=== PATIENT | male | born 1970 | race Caucasian/White ===

== ENCOUNTER 2019-08-11 16:06 | Observation (INO) | payer BC ==
[2019-08-11] MEDS ORDERED: THIAMINE 100 MG/ML 2 ML VIAL IM STA (18:26)
[2019-08-11] MEDS ORDERED: LORazepam 2 MG/ML INJ IV PRN ×2 (18:26)
--- NOTE | 2019-08-11 18:34 | ED ---
Alcohol HPI - General Source: patient Mode of arrival: ambulatory Limitations: no limitations <Leonel Prieto - Last Filed: 08/11/19 19:50> <Candice Ruiz - Last Filed: 08/15/19 03:46> - General Chief Complaint: Alcohol Stated Complaint: ETOH Time Seen by Provider: 08/11/19 17:21 - History of Present Illness Initial Comments: Patient is a 49-year-old male with history of alcoholism was presenting to emergency Department with chief complaint of alcohol withdrawal. Patient reports he was sober for 9 months and attended a meetings weekly. Patient reports on Saturday he began drinking for particular reason. Patient reports after he drinks he develops abdominal pain in order to alleviate the pain he continue drinking. Patient reports he has been drinking since Saturday. Patient reports he had a fifth of liquor today. Patient reports he has developed generalized abdominal pain that comes and goes. Patient also reports nausea but no vomiting. Patient denies tremors at this time. (Leonel Prieto) - Related Data Previous Rx's Medication Instructions Recorded Carvedilol [Coreg] 3.125 mg PO DAILY 30 Days #30 08/13/19 tablet Folic Acid 1 mg PO DAILY #30 tablet 08/13/19 Multivitamins, Thera [Multivitamin] 1 tab PO DAILY #30 tablet 08/13/19 Omeprazole [PriLOSEC] 20 mg PO AC-BID 30 Days #60 cap 08/13/19 Thiamine [Vitamin B-1] 100 mg PO BID-W/MEALS 30 Days #60 08/13/19 tab Allergies Allergy/AdvReac Type Severity Reaction Status Date / Time No Known Allergies Allergy Verified 08/11/19 17:29 Review of Systems ROS Other: All systems not noted in ROS Statement are negative. <Leonel Prieto - Last Filed: 08/11/19 19:50> ROS Other: All systems not noted in ROS Statement are negative. <Candice Ruiz - Last Filed: 08/15/19 03:46> ROS Statement: Those systems with pertinent positive or pertinent negative responses have been documented in the HPI. Past Medical History Past Medical History: No Reported History History of Any Multi-Drug Resistant Organisms: None Reported Past Surgical History: No Surgical Hx Reported Past Psychological History: No Psychological Hx Reported Smoking Status: Current every day smoker Past Alcohol Use History: Daily Past Drug Use History: None Reported <Leonel Prieto - Last Filed: 08/11/19 19:50> General Exam Limitations: no limitations General appearance: alert, in no apparent distress Head exam: Present: atraumatic, normocephalic, normal inspection Eye exam: Present: normal appearance, PERRL, EOMI Pupils: Present: normal accommodation ENT exam: Present: normal exam, mucous membranes dry, normal external ear exam Neck exam: Present: normal inspection, full ROM Respiratory exam: Present: normal lung sounds bilaterally Cardiovascular Exam: Present: regular rate, normal rhythm, normal heart sounds GI/Abdominal exam: Present: soft, tenderness (Suprapubic) Extremities exam: Present: normal inspection, full ROM, normal capillary refill, other (+2 ulnar radial pulses bilaterally.) Back exam: Present: normal inspection, full ROM Neurological exam: Present: alert, oriented X3 Psychiatric exam: Present: normal affect, normal mood Skin exam: Present: warm, intact, normal color <Leonel Prieto - Last Filed: 08/11/19 19:50> Course Vital Signs 08/11/19 08/11/19 08/11/19 16:36 18:53 20:09 Temperature 97.9 F 97.9 F Pulse Rate 113 H 102 H 99 Respiratory 16 18 18 Rate Blood Pressure 193/123 174/127 167/114 O2 Sat by Pulse 95 98 94 L Oximetry 08/11/19 08/11/19 21:23 21:32 Temperature Pulse Rate 107 H 105 H Respiratory 18 18 Rate Blood Pressure 158/112 148/92 O2 Sat by Pulse 94 L 94 L Oximetry Medical Decision Making - Lab Data Result diagrams: 08/11/19 18:50 08/11/19 18:50 <Leonel Prieto - Last Filed: 08/11/19 19:50> - Lab Data Result diagrams: 08/11/19 18:50 08/11/19 18:50 <Candice Ruiz - Last Filed: 08/15/19 03:46> - Medical Decision Making Patient is a 49-year-old male presenting to the emergency department with a chief complaint of alcohol withdrawal. Patient has been sober for the past 9 months but began to drink Saturday and has not stopped since. Patient wants to be admitted for alcohol withdrawal. Patient doesn't have any tremors. Patient is only complaining of nausea and mild generalized abdominal pain that comes in waves. Patient has a BAT of 0.271. CIWA score assessed. patient placed on alcohol protocol for DT. Patient given antiemetics, fluids and thimine. Patient is not in DT at this time. Patient reports he drank a few hours prior to ED arrival. Patient wants to be evaluated by the psychiatry staff. Patient will be admitted for further medical management due to alcohol intoxication over 0.250. Case discussed with Dr. Ruiz. Admitting physcian is Dr. Ochoa (Leonel Prieto) I was available for consultation in the emergency department. The history and physical exam were done by the midlevel provider. I was consulted for this patients care. I reviewed the case with the midlevel provider and based on their presentation of the patient, I agree with the assessment, medical decision mamadou arciniega and plan of care as documented. Chart was dictated using [employer] dictation software. Attempts were made to correct any dictation errors however some typographical errors may persist. (Candice Ruiz) - Lab Data Lab Results 08/11/19 08/11/19 Range/Units 18:50 18:50 WBC 7.5 (3.8-10.6) k/uL RBC 5.56 (4.30-5.90) m/uL Hgb 17.0 (13.0-17.5) gm/dL Hct 49.9 (39.0-53.0) % MCV 89.7 (80.0-100.0) fL MCH 30.5 (25.0-35.0) pg MCHC 34.0 (31.0-37.0) g/dL RDW 15.9 H (11.5-15.5) % Plt Count 267 (150-450) k/uL Neutrophils % 50 % Lymphocytes % 39 % Monocytes % 6 % Eosinophils % 2 % Basophils % 1 % Neutrophils # 3.7 (1.3-7.7) k/uL Lymphocytes # 2.9 (1.0-4.8) k/uL Monocytes # 0.4 (0-1.0) k/uL Eosinophils # 0.2 (0-0.7) k/uL Basophils # 0.1 (0-0.2) k/uL Sodium 142 (137-145) mmol/L Potassium 4.3 (3.5-5.1) mmol/L Chloride 100 (98-107) mmol/L Carbon Dioxide 31 H (22-30) mmol/L Anion Gap 11 mmol/L BUN 9 (9-20) mg/dL Creatinine 0.67 (0.66-1.25) mg/dL Est GFR (CKD-EPI)AfAm >90 (>60 ml/min/1.73 sqM) Est GFR (CKD-EPI)NonAf >90 (>60 ml/min/1.73 sqM) Glucose 97 (74-99) mg/dL Calcium 9.4 (8.4-10.2) mg/dL Total Bilirubin 0.5 (0.2-1.3) mg/dL AST 45 (17-59) U/L ALT 39 (21-72) U/L Alkaline Phosphatase 99 (38-126) U/L Total Protein 7.7 (6.3-8.2) g/dL Albumin 4.5 (3.5-5.0) g/dL Amylase 56 (30-110) U/L Lipase 75 (23-300) U/L Disposition Is patient prescribed a controlled substance at d/c from ED?: No Time of Disposition: 19:55 <Leonel Prieto - Last Filed: 08/11/19 19:50> <Candice Ruiz - Last Filed: 08/15/19 03:46> Clinical Impression: Alcoholic intoxication Disposition: ADMITTED IP TO THIS HOSP Condition: Stable
[2019-08-11 19:10] LABS: Basophils # (A) 0.1 k/uL (0-0.2); Basophils % (A) 1 %; Eosinophils # (A) 0.2 k/uL (0-0.7); Eosinophils % (A) 2 %; HCT 49.9 % (39.0-53.0); Lymphocytes # (A) 2.9 k/uL (1.0-4.8); Lymphocytes % (A) 39 %; MCH 30.5 pg (25.0-35.0); MCV 89.7 fL (80.0-100.0); Mean Platelet Volume 6.6; Monocytes # (A) 0.4 k/uL (0-1.0); Monocytes % (A) 6 %; Neutrophils # (A) 3.7 k/uL (1.3-7.7); Neutrophils % (A) 50 %; Platelet Count 267 k/uL (150-450); RBC 5.56 m/uL (4.30-5.90); RDW 15.9 % (11.5-15.5); WBC 7.5 k/uL (3.8-10.6)
[2019-08-11 19:18] LABS: ALT 39 U/L (21-72); AST 45 U/L (17-59); African American GFR (CKD) >90 (>60 ml/min/1.73 sqM); Albumin 4.5 g/dL (3.5-5.0); Alkaline Phosphatase 99 U/L (38-126); Amylase 56 U/L (30-110); Anion Gap 11 mmol/L; Blood Urea Nitrogen 9 mg/dL (9-20); Calcium 9.4 mg/dL (8.4-10.2); Carbon Dioxide 31 mmol/L (22-30); Chloride 100 mmol/L (98-107); Glucose 97 mg/dL (74-99); Non-African American GFR(CKD) >90 (>60 ml/min/1.73 sqM); Potassium 4.3 mmol/L (3.5-5.1); Sodium 142 mmol/L (137-145); Total Bilirubin 0.5 mg/dL (0.2-1.3); Total Protein 7.7 g/dL (6.3-8.2)
[2019-08-11] MEDS ORDERED: NALOXONE 0.4 MG/ML 1 ML VIAL IV PRN (19:47)
[2019-08-11] MEDS ORDERED: HYDROmorphone 1 MG/ML 1 ML SYRINGE IVP PRN (19:47)
[2019-08-11] MEDS ORDERED: ONDANSETRON ODT 4 MG TAB PO STA (20:23)
[2019-08-11] MEDS ORDERED: cloNIDine HCL 0.1 MG TAB PO STA (20:23)
[2019-08-11] MEDS ORDERED: NICOTINE 21MG/24HR PATCH TRANSDERM STA (21:24)
[2019-08-11] MEDS: LORazepam 2 MG/ML INJ IV PRN (21:31)
[2019-08-12] MEDS: ONDANSETRON 4 MG/2 ML VIAL IVP PRN ×2 (01:57→08:05)
[2019-08-12] MEDS: ALPRAZolam 0.25 MG TAB PO PRN ×2 (08:05→22:00)
[2019-08-12] MEDS: THIAMINE 100 MG TAB PO SCH ×2 (08:05→18:10)
[2019-08-12] MEDS: IPRATROPIUM-ALBUTEROL 3 ML NEB INHALATION PRN ×3 (10:08→20:13)
[2019-08-12] MEDS: LORazepam 2 MG/ML INJ IV PRN (11:17)
[2019-08-12] MEDS: cloNIDine HCL 0.1 MG TAB PO SCH ×3 (11:19→22:00)
--- NOTE | 2019-08-12 14:10 | P.HPIM ---
History of Present Illness 49-year-old male with history of alcoholism was presenting to emergency Department with chief complaint of alcohol withdrawal. Patient reports he was sober for 9 months and attended a meetings weekly. Patient reports on Saturday he began drinking for particular reason. Patient reports after he drinks he develops abdominal pain in order to alleviate the pain he continue drinking. Patient reports he has been drinking since Saturday. Patient reports he had a fifth of liquor today. Patient reports he has developed generalized abdominal pain that comes and goes. Patient also reports nausea but no vomiting. Patient denies tremors at this time. Patient is willing to quit alcohol again. Patient started having withdrawals today. Patient would pressure is elevated and the patient is bit tachycardic because of alcohol withdrawal, will use clonidine. Review of Systems REVIEW OF SYSTEMS: CONSTITUTIONAL: No fever, no malaise, no fatigue. HEENT: No recent visual problems or hearing problems. Denied any sore throat. CARDIOVASCULAR: No chest pain, orthopnea, PND, no palpitations, no syncope. PULMONARY: No shortness of breath, no cough, no hemoptysis. GASTROINTESTINAL: As mentioned above NEUROLOGICAL: No headaches, no weakness, no numbness. HEMATOLOGICAL: Denies any bleeding or petechiae. GENITOURINARY: Denies any burning micturition, frequency, or urgency. MUSCULOSKELETAL/RHEUMATOLOGICAL: Denies any joint pain, swelling, or any muscle pain. ENDOCRINE: Denies any polyuria or polydipsia. The rest of the 14-point review of systems is negative. Past Medical History Past Medical History: Hypertension History of Any Multi-Drug Resistant Organisms: None Reported Past Surgical History: No Surgical Hx Reported Past Psychological History: No Psychological Hx Reported Smoking Status: Current every day smoker Past Alcohol Use History: Daily Past Drug Use History: None Reported - Past Family History Father Additional Family Medical History / Comment(s): alcoholic Mother Family Medical History: Hypertension Medications and Allergies Home Medications Medication Instructions Recorded Confirmed Type No Known Home Medications 10/24/16 08/11/19 History Allergies Allergy/AdvReac Type Severity Reaction Status Date / Time No Known Allergies Allergy Verified 08/11/19 17:29 Physical Exam Vitals: Vital Signs Temp Pulse Pulse Resp BP BP Pulse Ox 08/12/19 13:42 84 08/12/19 10:18 80 08/12/19 10:08 76 08/12/19 07:00 98.3 F 111 H 16 182/101 92 L 08/12/19 01:38 98.0 F 111 H 17 150/103 89 L 08/11/19 22:42 98.3 F 97 150/100 91 L 08/11/19 21:32 105 H 18 148/92 94 L 08/11/19 21:23 107 H 18 158/112 94 L 08/11/19 20:09 97.9 F 99 18 167/114 94 L 08/11/19 18:53 102 H 18 174/127 98 08/11/19 16:36 97.9 F 113 H 16 193/123 95 Intake and Output 08/11/19 08/12/19 08/12/19 22:59 06:59 14:59 Intake Total 450 Balance 450 Intake: Oral 450 Other: Weight 74.389 kg PHYSICAL EXAMINATION: GENERAL: The patient is alert and oriented x3, not in any acute distress. Well developed, well nourished. HEENT: Pupils are round and equally reacting to light. EOMI. No scleral icterus. No conjunctival pallor. Normocephalic, atraumatic. No pharyngeal erythema. No thyromegaly. CARDIOVASCULAR: S1 and S2 present. No murmurs, rubs, or gallops. PULMONARY: Chest is clear to auscultation, no wheezing or crackles. ABDOMEN: Soft, nontender, nondistended, normoactive bowel sounds. No palpable organomegaly. MUSCULOSKELETAL: No joint swelling or deformity. EXTREMITIES: No cyanosis, clubbing, or pedal edema. NEUROLOGICAL: Gross neurological examination did not reveal any focal deficits. SKIN: No rashes. Results CBC & Chem 7: 08/11/19 18:50 08/11/19 18:50 Labs: Abnormal Lab Results - Last 24 Hours (Table) 08/11/19 08/11/19 Range/Units 18:50 18:50 RDW 15.9 H (11.5-15.5) % Carbon Dioxide 31 H (22-30) mmol/L Assessment and Plan Plan: -Alcohol withdrawal patient will be on Ativan CIWA protocol thiamine multivitamin supplementation IV fluids -Hypertension and tachycardia: Secondary to alcohol withdrawal clonidine 0.1 mg 3 times a day as needed. Alcoholic gastritis: Protonix -DVT prophylaxis early ambulation
[2019-08-12] MEDS ORDERED: MAG HYDROX/AL HYDROX/SIMETH 30 ML CUP PO PRN (17:31)
[2019-08-12] MEDS: NICOTINE 21MG/24HR PATCH TRANSDERM SCH (18:10)
[2019-08-12] MEDS ORDERED: FAMOTIDINE 20 MG TAB PO SCH (21:00)
[2019-08-13 01:50] VITALS: TEMP 98.1
[2019-08-13] MEDS ORDERED: PANTOPRAZOLE 40 MG TABLET PO SCH (07:30)
[2019-08-13 08:20] VITALS: RESP 16
[2019-08-13] MEDS: NICOTINE 21MG/24HR PATCH TRANSDERM SCH (08:26)
[2019-08-13] MEDS: THIAMINE 100 MG TAB PO SCH (08:27)
[2019-08-13] MEDS: cloNIDine HCL 0.1 MG TAB PO SCH (08:27)
[2019-08-13] MEDS: IPRATROPIUM-ALBUTEROL 3 ML NEB INHALATION PRN (09:15)
[2019-08-13 10:18] VITALS: PULSE 89
[2019-08-13 10:41] VITALS: BP 158/98
--- NOTE | 2019-08-13 16:16 | P.DS ---
Providers Date of admission: 08/11/19 20:42 Expected date of discharge: 08/13/19 Attending physician: Gomez Ochoa Primary care physician: Stated None Hospital Course: Final diagnosis -Alcohol withdrawal -Hypertension and tachycardia: Secondary to alcohol withdrawal -Alcoholic gastritis -DVT prophylaxis Discharge disposition Patient is being discharged in a stable condition with guarded prognosis to home and will follow-up with primary care provider upon discharge. Patient will be started on a low-dose of Coreg 3.125 mg daily upon discharge. Total time taken is 35 minutes. History of present illness This is a 49-year-old male who was recently admitted for alcohol withdrawal and was being closely monitored. Patient recently quit drinking and was sober for 9 months and going to meetings every week recently just restarted drinking this past Saturday. During hospitalization patient was hypertensive and tachycardic and was given clonidine. Upon discharge patient will be started on Coreg and will follow-up with primary care provider in 1-2 days. Discussed with the patient at length about refraining from any alcohol intake and patient agrees with this plan. Patient denies any chest pain, shortness of breath, or palp itations at this time. Patient is afebrile. Patient denies any nausea or vomiting and has been tolerating diet. Patient's gait is steady. at the bedside. Currently patient's condition is stable and able for discharge today. Guarded prognosis. On exam vital signs are stable. Temp is 98.1F, pulse is 88, respirations are 16, blood pressure is 158/98, oxygen saturation is 94% on room air. Cardio S1 and S2 are normal. Respiratory system shows clear to auscultation. Abdomen is soft and nontender. Nervous system shows no focal deficits and gait is steady. Please refer to medication reconciliation sheet for a list of medications. Patient Condition at Discharge: Stable Plan - Discharge Summary New Discharge Prescriptions: New Folic Acid 1 mg PO DAILY #30 tablet Multivitamins, Thera [Multivitamin] 1 tab PO DAILY #30 tablet Omeprazole [PriLOSEC] 20 mg PO AC-BID 30 Days #60 cap Thiamine [Vitamin B-1] 100 mg PO BID-W/MEALS 30 Days #60 tab Carvedilol [Coreg] 3.125 mg PO DAILY 30 Days #30 tablet Discharge Medication List Carvedilol [Coreg] 3.125 mg PO DAILY 30 Days #30 tablet 08/13/19 [Rx] Folic Acid 1 mg PO DAILY #30 tablet 08/13/19 [Rx] Multivitamins, Thera [Multivitamin] 1 tab PO DAILY #30 tablet 08/13/19 [Rx] Omeprazole [PriLOSEC] 20 mg PO AC-BID 30 Days #60 cap 08/13/19 [Rx] Thiamine [Vitamin B-1] 100 mg PO BID-W/MEALS 30 Days #60 tab 08/13/19 [Rx] Follow up Appointment(s)/Referral(s): Wilfredo Ludwig MD [REFERRING] - 08/21/19 1:50 pm Patient Instructions/Handouts: Alcohol Intoxication (ED) Activity/Diet/Wound Care/Special Instructions: Activity Limited until follow-up Follow-up with primary care provider this week Continue current diet Avoid any alcohol intake Avoid tobacco use Discharge Disposition: HOME SELF-CARE
== END 2019-08-13 11:25 | disposition home or self-care (01) ==
LOC: EC 16:06 → 4SSUR 20:42
PROVIDERS: ADMIT Hospitalist; ATTEND Hospitalist
DX: F10.239 Alcohol dependence with withdrawal, unspecified (principal); F10.229 Alcohol dependence with intoxication, unspecified; K29.20 Alcoholic gastritis without bleeding; I10 Essential (primary) hypertension; R00.0 Tachycardia, unspecified; R10.84 Generalized abdominal pain; R11.0 Nausea; Y90.8 Blood alcohol level of 240 mg/100 ml or more; F17.200 Nicotine dependence, unspecified, uncomplicated; Z79.899 Other long term (current) drug therapy; Z82.49 Family history of ischemic heart disease and other diseases of the circulatory system; Z81.1 Family history of alcohol abuse and dependence
CPT/HCPCS: 96376; 96375; 82075; 96372; 96374; 99284; 36415; 94640 ×3; 80053; 82150; 83690; 85025; G0378 ×3; S4990 ×3; J2060 ×2; J3411; J2405

== ENCOUNTER 2020-06-02 09:35 | Emergency (ER) | payer BC ==
[2020-06-02 09:40] VITALS: TEMP 98.1
[2020-06-02] MEDS ORDERED: SODIUM CHLORIDE 0.9% 1,000 ML IV ONE (09:52)
[2020-06-02] MEDS ORDERED: IPRATROPIUM-ALBUTEROL 3 ML NEB INHALATION STA (09:53)
[2020-06-02] MEDS ORDERED: LORazepam 2 MG/ML INJ IV STA (09:53)
[2020-06-02] MEDS ORDERED: hydrALAZINE HCL 20 MG/ML 1 ML VIAL IVP STA (09:53)
[2020-06-02] MEDS ORDERED: SODIUM CHLORIDE 0.9% 1,000 ML with MVI, ADULT NO.4 WITH VIT K 10 ML, THIAMINE 100 MG, F... IV ONE ×4 (10:00)
--- NOTE | 2020-06-02 10:01 | ED ---
General Adult HPI - General Chief complaint: Alcohol Stated complaint: alcohol withdrawal Time Seen by Provider: 06/02/20 09:40 Source: patient, RN notes reviewed, old records reviewed Mode of arrival: ambulatory Limitations: no limitations - History of Present Illness Initial comments: This is a 50-year-old male who presents emergency department stating that he is a heavy drinker and is been drinking heavily for 3 weeks. Patient states he has quit before but he's been on the successful and staying on the wagon. Patient comes in today stating he wants to go to rehab shaking has thinks she is withdrawing. Patient states he last drank probably around 2:00 in the morning. Patient states she also smokes cigarettes. Patient denies any chest pain difficult breathing shortness of breath per patient denies any fever chills or cough per patient denies headache patient denies numbness weakness. Patient denies abdominal pain patient denies nausea vomiting diarrhea. - Related Data Previous Rx's Medication Instructions Recorded Carvedilol [Coreg] 3.125 mg PO DAILY 30 Days #30 08/13/19 tablet Folic Acid 1 mg PO DAILY #30 tablet 08/13/19 Multivitamins, Thera [Multivitamin] 1 tab PO DAILY #30 tablet 08/13/19 Omeprazole [PriLOSEC] 20 mg PO AC-BID 30 Days #60 cap 08/13/19 Thiamine [Vitamin B-1] 100 mg PO BID-W/MEALS 30 Days #60 08/13/19 tab Allergies Allergy/AdvReac Type Severity Reaction Status Date / Time No Known Allergies Allergy Verified 06/02/20 09:39 Review of Systems ROS Statement: Those systems with pertinent positive or pertinent negative responses have been documented in the HPI. ROS Other: All systems not noted in ROS Statement are negative. Past Medical History Past Medical History: Hypertension History of Any Multi-Drug Resistant Organisms: None Reported Past Surgical History: No Surgical Hx Reported Past Psychological History: No Psychological Hx Reported Smoking Status: Current every day smoker Past Alcohol Use History: Abuse, Daily, Heavy Past Drug Use History: None Reported - Past Family History Father Additional Family Medical History / Comment(s): alcoholic Mother Family Medical History: Hypertension General Exam - General Exam Comments Initial Comments: GENERAL: Patient is well-developed and well-nourished. Patient is nontoxic and well- hydrated and is in mild distress. Patient seems mildly tremulous ENT: Neck is soft and supple. No significant lymphadenopathy is noted. Oropharynx is clear. Moist mucous membranes. Neck has full range of motion without eliciting any pain. EYES: The sclera were anicteric and conjunctiva were pink and moist. Extraocular movements were intact and pupils were equal round and reactive to light. Eyelids were unremarkable. PULMONARY: Patient has expiratory wheezing CARDIOVASCULAR: There is a regular rate and rhythm without any murmurs gallops or rubs. ABDOMEN: Soft and nontender with normal bowel sounds. No palpable organomegaly was noted. There is no palpable pulsatile mass. SKIN: Skin is clear with no lesions or rashes and otherwise unremarkable. NEUROLOGIC: Patient is alert and oriented x3. Cranial nerves II through XII are grossly intact. Motor and sensory are also intact. Normal speech, volume and content. Symmetrical smile. MUSCULOSKELETAL: Normal extremities with adequate strength and full range of motion. LYMPHATICS: No significant lymphadenopathy is noted PSYCHIATRIC: Normal psychiatric evaluation. Limitations: no limitations Course Vital Signs 06/02/20 06/02/20 06/02/20 09:37 09:58 10:13 Temperature 98.1 F Pulse Rate 121 H 118 H Respiratory 18 16 Rate Blood Pressure 201/114 185/119 143/100 O2 Sat by Pulse 98 94 L Oximetry 06/02/20 06/02/20 06/02/20 10:16 10:35 10:47 Temperature Pulse Rate 111 H 121 H 116 H Respiratory 16 Rate Blood Pressure 140/98 140/90 O2 Sat by Pulse 97 Oximetry 06/02/20 06/02/20 10:48 11:50 Temperature Pulse Rate 115 H 114 H Respiratory 16 Rate Blood Pressure 128/88 O2 Sat by Pulse 92 L Oximetry Medical Decision Making - Lab Data Result diagrams: 06/02/20 10:06 06/02/20 10:06 Lab Results 06/02/20 06/02/20 06/02/20 Range/Units 10:06 10:06 10:06 WBC 5.1 (3.8-10.6) k/uL RBC 4.43 (4.30-5.90) m/uL Hgb 13.9 (13.0-17.5) gm/dL Hct 41.4 (39.0-53.0) % MCV 93.4 (80.0-100.0) fL MCH 31.4 (25.0-35.0) pg MCHC 33.6 (31.0-37.0) g/dL RDW 14.4 (11.5-15.5) % Plt Count 201 (150-450) k/uL Neutrophils % 65 % Lymphocytes % 21 % Monocytes % 11 % Eosinophils % 1 % Basophils % 1 % Neutrophils # 3.3 (1.3-7.7) k/uL Lymphocytes # 1.1 (1.0-4.8) k/uL Monocytes # 0.6 (0-1.0) k/uL Eosinophils # 0.1 (0-0.7) k/uL Basophils # 0.0 (0-0.2) k/uL Sodium 135 L (137-145) mmol/L Potassium 3.7 (3.5-5.1) mmol/L Chloride 95 L (98-107) mmol/L Carbon Dioxide 18 L (22-30) mmol/L Anion Gap 22 mmol/L BUN 11 (9-20) mg/dL Creatinine 0.67 (0.66-1.25) mg/dL Est GFR (CKD-EPI)AfAm >90 (>60 ml/min/1.73 sqM) Est GFR (CKD-EPI)NonAf >90 (>60 ml/min/1.73 sqM) Glucose 88 (74-99) mg/dL Calcium 8.6 (8.4-10.2) mg/dL Magnesium 1.4 L (1.6-2.3) mg/dL Total Bilirubin 0.6 (0.2-1.3) mg/dL AST 83 H (17-59) U/L ALT 54 H (4-49) U/L Alkaline Phosphatase 105 (38-126) U/L Total Protein 6.7 (6.3-8.2) g/dL Albumin 4.3 (3.5-5.0) g/dL Serum Alcohol 254 H* mg/dL Disposition Clinical Impression: Alcoholic intoxication Disposition: HOME SELF-CARE Condition: Good Instructions (If sedation given, give patient instructions): Alcohol Intoxication (ED) Additional Instructions: Patient should follow-up with rehabilitation Center Is patient prescribed a controlled substance at d/c from ED?: No Referrals: None,Stated [Primary Care Provider] - 1-2 days Time of Disposition: 11:53
[2020-06-02 10:34] LABS: Basophils % (A) 1 %; Eosinophils # (A) 0.1 k/uL (0-0.7); Eosinophils % (A) 1 %; HCT 41.4 % (39.0-53.0); HGB 13.9 gm/dL (13.0-17.5); Lymphocytes # (A) 1.1 k/uL (1.0-4.8); Lymphocytes % (A) 21 %; MCH 31.4 pg (25.0-35.0); MCHC 33.6 g/dL (31.0-37.0); MCV 93.4 fL (80.0-100.0); Mean Platelet Volume 7.1; Monocytes # (A) 0.6 k/uL (0-1.0); Monocytes % (A) 11 %; Neutrophils # (A) 3.3 k/uL (1.3-7.7); Neutrophils % (A) 65 %; Platelet Count 201 k/uL (150-450); RBC 4.43 m/uL (4.30-5.90); RDW 14.4 % (11.5-15.5); WBC 5.1 k/uL (3.8-10.6)
[2020-06-02 10:42] LABS: ALT 54 U/L (4-49); AST 83 U/L (17-59); African American GFR (CKD) >90 (>60 ml/min/1.73 sqM); Albumin 4.3 g/dL (3.5-5.0); Alkaline Phosphatase 105 U/L (38-126); Anion Gap 22 mmol/L; Blood Urea Nitrogen 11 mg/dL (9-20); Calcium 8.6 mg/dL (8.4-10.2); Carbon Dioxide 18 mmol/L (22-30); Chloride 95 mmol/L (98-107); Glucose 88 mg/dL (74-99); Magnesium 1.4 mg/dL (1.6-2.3); Non-African American GFR(CKD) >90 (>60 ml/min/1.73 sqM); Potassium 3.7 mmol/L (3.5-5.1); Sodium 135 mmol/L (137-145); Total Bilirubin 0.6 mg/dL (0.2-1.3); Total Protein 6.7 g/dL (6.3-8.2)
[2020-06-02] MEDS ORDERED: MAGNESIUM SULFATE-D5W PMX 1 GM in DEXTROSE/WATER 1 100ML.BAG IVPB ONE (10:44)
[2020-06-02] MEDS ORDERED: ONDANSETRON 4 MG/2 ML VIAL IVP STA (11:43)
[2020-06-02 12:31] VITALS: BP 128/77; PULSE 110; RESP 18
== END 2020-06-02 12:31 | disposition home or self-care (01) ==
LOC: EC 09:35
DX: F10.129 Alcohol abuse with intoxication, unspecified (principal); F17.210 Nicotine dependence, cigarettes, uncomplicated; Y90.8 Blood alcohol level of 240 mg/100 ml or more
CPT/HCPCS: 99285; 96365; 96366; 96368; 96375 ×3; 96361; 36415; 94640; 80053; 83735; 85025; 80320; J2060; J0360; J3411; J2405; J3475

== ENCOUNTER 2022-05-29 10:09 | Emergency (ER) | payer BC ==
[2022-05-29 10:52] VITALS: TEMP 98.2
[2022-05-29] MEDS ORDERED: SODIUM CHLORIDE 0.9% 1,000 ML IV STA (11:47)
[2022-05-29 12:21] LABS: Basophils # (A) 0.1 k/uL (0-0.2); Basophils % (A) 1 %; Eosinophils # (A) 0.2 k/uL (0-0.7); Eosinophils % (A) 2 %; HCT 41.3 % (39.0-53.0); HGB 14.3 gm/dL (13.0-17.5); Lymphocytes # (A) 1.4 k/uL (1.0-4.8); Lymphocytes % (A) 13 %; MCHC 34.5 g/dL (31.0-37.0); Mean Platelet Volume 8.1; Monocytes # (A) 0.5 k/uL (0-1.0); Monocytes % (A) 5 %; Neutrophils # (A) 8.3 k/uL (1.3-7.7); Neutrophils % (A) 78 %; Platelet Count 201 k/uL (150-450); RBC 4.59 m/uL (4.30-5.90); RDW 13.1 % (11.5-15.5); WBC 10.7 k/uL (3.8-10.6)
[2022-05-29 12:29] LABS: Prothrombin Time 10.6 sec (9.0-12.0)
[2022-05-29 12:31] LABS: ALT 78 U/L (4-49); AST 88 U/L (17-59); African American GFR (CKD) >90 (>60 ml/min/1.73 sqM); Albumin 4.3 g/dL (3.5-5.0); Alcohol <10 mg/dL; Alkaline Phosphatase 83 U/L (38-126); Anion Gap 7 mmol/L; Blood Urea Nitrogen 20 mg/dL (9-20); Calcium 9.2 mg/dL (8.4-10.2); Carbon Dioxide 30 mmol/L (22-30); Chloride 97 mmol/L (98-107); Glucose 108 mg/dL (74-99); Non-African American GFR(CKD) >90 (>60 ml/min/1.73 sqM); Potassium 3.4 mmol/L (3.5-5.1); Sodium 134 mmol/L (137-145); Total Bilirubin 0.8 mg/dL (0.2-1.3)
--- NOTE | 2022-05-29 12:34 | XR ---
EXAMINATION TYPE: XR chest 2V DATE OF EXAM: 05/29/2022 COMPARISON: NONE HISTORY: Shortness of breath TECHNIQUE: Frontal and lateral views of the chest are obtained. FINDINGS: Scattered senescent parenchymal changes noted. No evidence for infiltrate. No evidence for atelectasis. Heart size is stable. Mediastinal structures are stable and grossly unremarkable. No evidence for hilar prominence. Degenerative changes dorsal spine. IMPRESSION: 1. No evidence for acute pulmonary disease.
[2022-05-29 12:44] LABS: Appearance,Urine Clear (Clear); Bilirubin,Urine Negative (Negative); Blood,Urine Negative (Negative); Color,Urine Yellow; Glucose,Urine (UA) Negative (Negative); Ketones,Urine Negative (Negative); Leukocyte Esterase,Urine Negative (Negative); Nitrite,Urine Negative (Negative); Protein,Urine Trace (Negative); Specific Gravity,Urine 1.025 (1.001-1.035)
[2022-05-29 12:47] VITALS: RESP 16
--- NOTE | 2022-05-29 12:53 | ED ---
Dizziness HPI - General Chief Complaint: Dizziness Stated Complaint: High blood pressure Time Seen by Provider: 05/29/22 11:36 Source: patient Mode of arrival: ambulatory Limitations: no limitations - History of Present Illness Initial Comments: Patient is a 52-year-old male with history of hypertension and alcohol abuse presenting with chief complaint of dizziness. Patient states that he was at home resting when he felt sudden onset dizziness, he also states that his legs felt very restless at that time. Patient states "I just felt weird". Patient states he was concerned about his blood sugar and ate some chocolate. He admits to having 3 cups of coffee this morning. He used to at home machine to check his blood pressure which was approximately 180/100. Patient states that last week he was drinking alcohol excessively, on Saturday he went to [facility], he was given Zofran and discharged home, and he has not drank since. He denies any chest pain, shortness of breath, fever, chills, nausea, vomiting, abdominal pain, tremors, headache, vision or hearing changes, syncope, head injury, palpitations, recent illness. - Related Data Previous Rx's Medication Instructions Recorded Folic Acid 1 mg PO DAILY #30 tablet 08/13/19 Multivitamins, Thera [Multivitamin] 1 tab PO DAILY #30 tablet 08/13/19 Omeprazole [PriLOSEC] 20 mg PO AC-BID 30 Days #60 cap 08/13/19 Thiamine [Vitamin B-1] 100 mg PO BID-W/MEALS 30 Days #60 08/13/19 tab carvediloL [Coreg] 3.125 mg PO DAILY 30 Days #30 08/13/19 tablet Allergies Allergy/AdvReac Type Severity Reaction Status Date / Time No Known Allergies Allergy Verified 05/29/22 10:52 Review of Systems ROS Statement: Those systems with pertinent positive or pertinent negative responses have been documented in the HPI. ROS Other: All systems not noted in ROS Statement are negative. Past Medical History Past Medical History: Hypertension History of Any Multi-Drug Resistant Organisms: None Reported Past Surgical History: No Surgical Hx Reported Past Psychological History: No Psychological Hx Reported Smoking Status: Current every day smoker Past Alcohol Use History: Abuse, Daily, Heavy Past Drug Use History: None Reported - Past Family History Father Additional Family Medical History / Comment(s): alcoholic Mother Family Medical History: Hypertension General Exam Limitations: no limitations General appearance: alert, in no apparent distress Head exam: Present: atraumatic, normocephalic, normal inspection Eye exam: Present: normal appearance, PERRL, EOMI. Absent: scleral icterus, periorbital swelling Neck exam: Present: normal inspection Respiratory exam: Present: normal lung sounds bilaterally. Absent: respiratory distress, wheezes, rales, rhonchi, stridor Cardiovascular Exam: Present: regular rate, normal rhythm, normal heart sounds. Absent: systolic murmur, diastolic murmur, rubs, gallop, clicks Extremities exam: Present: normal inspection Neurological exam: Present: alert, oriented X3, CN II-XII intact Expanded Patient oriented to: Present: person, place, time Speech: Present: fluid speech Cranial nerves: EOM's Intact: Normal, Facial Sensation: Normal Cerebellar function: Finger to Nose: Normal, Heel to [place]: Normal Sensory exam: Upper Extremity Light Touch: Normal, Lower Extremity Light Touch: Normal Motor strength exam: RUE: 5, LUE: 5, RLE: 5, LLE: 5 Eye Response: (4) open spontaneously Motor Response: (6) obeys commands Verbal Response: (5) oriented [place] Total: 15 Psychiatric exam: Present: normal affect, normal mood Skin exam: Present: warm, dry, intact, normal color. Absent: rash Course Vital Signs 05/29/22 05/29/22 05/29/22 10:47 12:28 12:46 Temperature 98.2 F Pulse Rate 110 H 86 Pulse Rate [ 76 Pulse Oximetery ] Respiratory 18 16 Rate Blood Pressure 172/108 177/119 O2 Sat by Pulse 99 98 Oximetry 05/29/22 13:54 Temperature Pulse Rate 84 Pulse Rate [ Pulse Oximetery ] Respiratory 16 Rate Blood Pressure 152/101 O2 Sat by Pulse 99 Oximetry EKG Findings - EKG Comments: EKG Findings:: Sinus rhythm rate of 95. NC interval 155. QRS duration 91. QTC 396. Normal axis. No ischemic changes. Medical Decision Making - Medical Decision Making Patient is a 52-year-old male presenting with chief complaint of dizziness. At home he checked his blood pressure and found it to be in the 180s/100s. Patient admits to being noncompliant with his hypertension medication. Patient is asymptomatic at the time of examination. On exam, heart and lungs are clear to auscultation, no focal neurological deficits. Sodium is 134 potassium is 3.4 and glucose is 108. AST and ALT are 80 and 78 respectively, patient has elevated LFTs at baseline. Troponin is WNL. Urine is unremarkable. Toxicology report is positive for benzodiazepines. Chest x-ray shows no acute process. Serum alcohol is less than 10. Patient was given 1 mg Ativan and 10 mg hydralazine for blood pressure control. At reassessment his blood pressure was 150/100. Patient is still asymptomatic. He appears stable for discharge with outpatient follow-up at this time. Follow-up with PCP in one to 2 days. Report back to ER with any new or worsening symptoms. Discussed return parameters answered all questions. Patient conveyed verbal understanding and agreed to the plan. I discussed this case with my attending Dr. Byrd. - Lab Data Result diagrams: 05/29/22 12:11 05/29/22 12:11 Lab Results 05/29/22 05/29/22 05/29/22 Range/Units 12:11 12:11 12:11 WBC 10.7 H (3.8-10.6) k/uL RBC 4.59 (4.30-5.90) m/uL Hgb 14.3 (13.0-17.5) gm/dL Hct 41.3 (39.0-53.0) % MCV 90.0 (80.0-100.0) fL MCH 31.0 (25.0-35.0) pg MCHC 34.5 (31.0-37.0) g/dL RDW 13.1 (11.5-15.5) % Plt Count 201 (150-450) k/uL MPV 8.1 Neutrophils % 78 % Lymphocytes % 13 % Monocytes % 5 % Eosinophils % 2 % Basophils % 1 % Neutrophils # 8.3 H (1.3-7.7) k/uL Lymphocytes # 1.4 (1.0-4.8) k/uL Monocytes # 0.5 (0-1.0) k/uL Eosinophils # 0.2 (0-0.7) k/uL Basophils # 0.1 (0-0.2) k/uL PT 10.6 (9.0-12.0) sec INR 1.0 (<1.2) Sodium (137-145) mmol/L Potassium (3.5-5.1) mmol/L Chloride (98-107) mmol/L Carbon Dioxide (22-30) mmol/L Anion Gap mmol/L BUN (9-20) mg/dL Creatinine (0.66-1.25) mg/dL Est GFR (CKD-EPI)AfAm (>60 ml/min/1.73 sqM) Est GFR (CKD-EPI)NonAf (>60 ml/min/1.73 sqM) Glucose (74-99) mg/dL Calcium (8.4-10.2) mg/dL Total Bilirubin (0.2-1.3) mg/dL AST (17-59) U/L ALT (4-49) U/L Alkaline Phosphatase (38-126) U/L Troponin I (0.000-0.034) ng/mL Total Protein (6.3-8.2) g/dL Albumin (3.5-5.0) g/dL Urine Color Yellow Urine Appearance Clear (Clear) Urine pH 6.0 (5.0-8.0) Ur Specific [place] 1.025 (1.001-1.035) Urine Protein Trace H (Negative) Urine Glucose (UA) Negative (Negative) Urine Ketones Negative (Negative) Urine Blood Negative (Negative) Urine Nitrite Negative (Negative) Urine Bilirubin Negative (Negative) Urine Urobilinogen 3.0 (<2.0) mg/dL Ur Leukocyte Esterase Negative (Negative) Urine Opiates Screen (NotDetected) Ur Oxycodone Screen (NotDetected) Urine Methadone Screen (NotDetected) Ur Propoxyphene Screen (NotDetected) Ur Barbiturates Screen (NotDetected) U Tricyclic Antidepress (NotDetected) Ur Phencyclidine Scrn (NotDetected) Ur Amphetamines Screen (NotDetected) U Methamphetamines Scrn (NotDetected) U Benzodiazepines Scrn (NotDetected) Urine Cocaine Screen (NotDetected) U Marijuana (THC) Screen (NotDetected) Serum Alcohol mg/dL 05/29/22 05/29/22 05/29/22 Range/Units 12:11 12:11 12:11 WBC (3.8-10.6) k/uL RBC (4.30-5.90) m/uL Hgb (13.0-17.5) gm/dL Hct (39.0-53.0) % MCV (80.0-100.0) fL MCH (25.0-35.0) pg MCHC (31.0-37.0) g/dL RDW (11.5-15.5) % Plt Count (150-450) k/uL MPV Neutrophils % % Lymphocytes % % Monocytes % % Eosinophils % % Basophils % % Neutrophils # (1.3-7.7) k/uL Lymphocytes # (1.0-4.8) k/uL Monocytes # (0-1.0) k/uL Eosinophils # (0-0.7) k/uL Basophils # (0-0.2) k/uL PT (9.0-12.0) sec INR (<1.2) Sodium 134 L (137-145) mmol/L Potassium 3.4 L (3.5-5.1) mmol/L Chloride 97 L (98-107) mmol/L Carbon Dioxide 30 (22-30) mmol/L Anion Gap 7 mmol/L BUN 20 (9-20) mg/dL Creatinine 0.73 (0.66-1.25) mg/dL Est GFR (CKD-EPI)AfAm >90 (>60 ml/min/1.73 sqM) Est GFR (CKD-EPI)NonAf >90 (>60 ml/min/1.73 sqM) Glucose 108 H (74-99) mg/dL Calcium 9.2 (8.4-10.2) mg/dL Total Bilirubin 0.8 (0.2-1.3) mg/dL AST 88 H (17-59) U/L ALT 78 H (4-49) U/L Alkaline Phosphatase 83 (38-126) U/L Troponin I <0.012 (0.000-0.034) ng/mL Total Protein 7.0 (6.3-8.2) g/dL Albumin 4.3 (3.5-5.0) g/dL Urine Color Urine Appearance (Clear) Urine pH (5.0-8.0) Ur Specific [place] (1.001-1.035) Urine Protein (Negative) Urine Glucose (UA) (Negative) Urine Ketones (Negative) Urine Blood (Negative) Urine Nitrite (Negative) Urine Bilirubin (Negative) Urine Urobilinogen (<2.0) mg/dL Ur Leukocyte Esterase (Negative) Urine Opiates Screen Not Detected (NotDetected) Ur Oxycodone Screen Not Detected (NotDetected) Urine Methadone Screen Not Detected (NotDetected) Ur Propoxyphene Screen Not Detected (NotDetected) Ur Barbiturates Screen Not Detected (NotDetected) U Tricyclic Antidepress Not Detected (NotDetected) Ur Phencyclidine Scrn Not Detected (NotDetected) Ur Amphetamines Screen Not Detected (NotDetected) U Methamphetamines Scrn Not Detected (NotDetected) U Benzodiazepines Scrn Detected H (NotDetected) Urine Cocaine Screen Not Detected (NotDetected) U Marijuana (THC) Screen Not Detected (NotDetected) Serum Alcohol <10 mg/dL Disposition Clinical Impression: Hypertension Disposition: HOME SELF-CARE Condition: Good Instructions (If sedation given, give patient instructions): Hypertension (ED), Dizziness (ED) Additional Instructions: Follow-up with PCP in one to 2 days. Report back to ER if any new or worsening symptoms. Is patient prescribed a controlled substance at d/c from ED?: No Referrals: Quintin Medrano DO [Primary Care Provider] - 1-2 days Time of Disposition: 13:48
[2022-05-29] MEDS ORDERED: hydrALAZINE HCL 20 MG/ML 1 ML VIAL IVP STA (13:18)
[2022-05-29] MEDS ORDERED: LORazepam 1 MG TAB PO STA (13:18)
[2022-05-29 13:55] VITALS: BP 152/101; PULSE 84
[2022-05-29 14:34] LABS: Amphetamine Screen,Urine Not Detected (NotDetected); Barbiturate Screen,Urine Not Detected (NotDetected); Benzodiazepines Screen,Urine Detected (NotDetected); Cocaine Screen,Urine Not Detected (NotDetected); Methadone Screen, Urine Not Detected (NotDetected); Opiate Screen,Urine Not Detected (NotDetected); Oxycodone Screen, Urine Not Detected (NotDetected); Phencyclidine Screen,Urine Not Detected (NotDetected); Tricyclic Antidepressant,Urine Not Detected (NotDetected); Urn Cannabinoid Scrn Not Detected (NotDetected)
== END 2022-05-29 14:06 | disposition home or self-care (01) ==
LOC: EC 10:09
DX: I10 Essential (primary) hypertension (principal); R79.89 Other specified abnormal findings of blood chemistry; Z91.14 Patient's other noncompliance with medication regimen; F17.200 Nicotine dependence, unspecified, uncomplicated
CPT/HCPCS: 36415; 93005; 80053; 84484; 85025; 85610; 81003; 80306; 80320; 71046; 99284; 96374; 96361; J0360

== ENCOUNTER → 2023-11-14 | Outpatient (CLI) | payer BC ==
--- NOTE | 2023-11-15 11:36 | CA ---
Transthoracic Echo Report Name: Anthony Mcdaniel Age: 53 Gender: M : 1970 Exam Date: 11/14/2023 13:40 Exam Location: [facility] Ht (in): 64 Wt (lb): 165 Ordering Physician: Quintin Medrano DO Attending/Referring Phys: Kevin Car [facility] Commercial Reporter Perri Senior RDCS Procedure CPT: Indications: R07.89 other chest pain Cardiac Hx: Technical Quality: Fair Contrast 1: Total Dose (mL): Contrast 2: Total Dose (mL): MEASUREMENTS (Male / Female) Normal Values 2D ECHO LV Diastolic Diameter PLAX 3.9 cm 4.2 - 5.9 / 3.9 - 5.3 cm LV Systolic Diameter PLAX 2.6 cm IVS Diastolic Thickness 0.9 cm 0.6 - 1.0 / 0.6 - 0.9 cm LVPW Diastolic Thickness 1.0 cm 0.6 - 1.0 / 0.6 - 0.9 cm LV Relative Wall Thickness 0.5 RV Internal Dim ED PLAX 3.3 cm LA Volume 36.6 cm??? 18 - 58 / 22 - 52 cm??? LA Volume Index 19.7 cm???/m??? 16 - 28 cm???/m??? M-MODE Aortic Root Diameter MM 2.5 cm LA Systolic Diameter MM 3.0 cm LA Ao Ratio MM 1.2 AV Cusp Separation MM 1.7 cm DOPPLER AV Peak Velocity 98.4 cm/s AV Peak Gradient 3.9 mmHg AV Mean Velocity 72.0 cm/s AV Mean Gradient 2.3 mmHg AV Velocity Time Integral 14.8 cm LVOT Peak Velocity 86.1 cm/s LVOT Peak Gradient 3.0 mmHg LVOT Velocity Time Integral 14.7 cm MV Area PHT 5.8 cm??? Mitral E Point Velocity 49.0 cm/s Mitral A Point Velocity 65.9 cm/s Mitral E to A Ratio 0.7 MV Deceleration Time 131.2 ms MV E' Velocity 7.6 cm/s Mitral E to MV E' Ratio 6.4 TR Peak Velocity 167.9 cm/s TR Peak Gradient 11.3 mmHg Right Ventricular Systolic Press 16.3 mmHg FINDINGS Left Ventricle Normal Left ventricular size, wall thickness, systolic function with no obvious regional wall motion abnormalities. Normal Left ventricular diastolic filling pattern. Left ventricular ejection fraction is estimated at 55 %. Right Ventricle Normal right ventricular size and function. Right ventricular systolic pressure within normal limits. Right Atrium Normal right atrial size. Left Atrium Normal left atrial size. Mitral Valve Structurally normal mitral valve. No mitral stenosis, regurgitation or prolapse. Aortic Valve Trileaflet aortic valve. No aortic valve stenosis or regurgitation. Tricuspid Valve Structurally normal tricuspid valve. Mild tricuspid regurgitation. Pulmonic Valve Structurally normal pulmonic valve. Pericardium No pericardial effusion. Aorta Normal size aortic root and proximal ascending aorta. CONCLUSIONS Left ventricular ejection fraction 55% RVSP 16 Mild tricuspid regurgitation No pericardial effusion Previewed by: Dr. Mauricio Stanford DO (Electronically Signed) Final Date: 15 November 2023 11:36
== END | disposition home or self-care (01) ==
LOC: RADECHMAIN 12:58
PROVIDERS: ATTEND Family Medicine
DX: I36.1 Nonrheumatic tricuspid (valve) insufficiency (principal); R07.89 Other chest pain
CPT/HCPCS: 93306

== ENCOUNTER → 2024-02-19 | Outpatient (CLI) | payer BC ==
[2024-02-19 11:17] VITALS: BP 145/89; PULSE 94; RESP 16; TEMP 98
--- NOTE | 2024-02-19 11:47 | P.SLEEP ---
History of Present Illness DATE: 02/19/2024 CONSULTATION/NEW PATIENT EVALUATION HISTORY OF PRESENT ILLNESS/SLEEP-WAKE EVALUATION: 53-year-old gentleman had be en evaluated in the sleep center for possible obstructive sleep apnea hypopnea syndrome. SLEEP SCHEDULE: Usually sleep schedule from 10 PM to 4 AM. FALLING ASLEEP: Sometimes patient has difficulties with falling asleep. DURING SLEEP: Patient has loud snoring and multiple awakenings from sleep up to 3 times. After awakenings from sleep patient has difficulties to initiate sleep again. No history of hypnogogical hallucinations, sleep paralysis, or cataplexy. DURING THE DAY/WAKE STATE: Patient feels sleepiness during the day. [place] sleepiness scale is 3. Patient may take nap around 11 AM. Patient with history of dreaming during naps. PAST MEDICAL HISTORY: Hypertension, acid reflux. PAST SURGICAL HISTORY: Tonsillectomy. MEDICATIONS: Lisinopril 20 mg once a day, amlodipine 2.5 mg once a day, famotidine 20 mg twice a day. SOCIAL HISTORY: Positive for smoking for 30 pack years, patient trying to quit. History of EtOH overuse in the past, quit 2 years ago. FAMILY HISTORY: Hypertension, diabetes, during the sleep. REVIEW OF SYSTEMS: Snoring, multiple awakenings from sleep. No fevers. No double vision. No recent chest pain. No shortness of breath. No abdominal pain. No bleeding episodes. No blood in urine. No seizure episodes. PHYSICAL EXAMINATION: GENERAL: A pleasant patient without any distress. VITAL SIGNS: Please see below, mass index 26.1. HEENT: PERRLA, EOMI. Evaluation of oropharynx showed tongue protrudes midline, low position of soft palate Mallampati 34. NECK: Supple. No JVD. Thyroid is not palpable. 16-3/4 inches in circumference. LUNGS: Clear to percussion and to auscultation. Good air exchange. No wheezing or rhonchi. HEART: S1, S2 regular. No murmurs, gallops or rubs. ABDOMEN: Soft and nontender. Bowel sounds are present. No organomegaly appreciated. EXTREMITIES: No clubbing or cyanosis. CASTING ASSOCIATE: Awake, alert, and oriented x3. Cranial nerves 2 to 7 intact. There is no fasciculation or atrophy noted. No focal deficits observed. ASSESSMENT: 1. Loud snoring, multiple awakenings from sleep, extremely low position of soft palate, sleepiness patient takes naps during the day. Obstructive sleep apnea hypopnea syndrome. 2. Difficulties to initiate sleep possible psychophysiological insomnia. 3. Hypertension. 4. Acid reflux. 5 status post tonsillectomy. 6 . Smoker for 30 pack years, trying to quit. 7. History of EtOH overuse in the past, quit 2 years ago. PLAN: 1. Home sleep apnea test for evaluation of patient's breathing during sleep. 2. Following plan after reading sleep study. 3. Preferable position during sleep on the side. 4. No driving if patient feels any sleepiness. Patient is aware of civil and criminal liability for unsafe driving. 5. Sleep hygiene with regular sleep time for at least 7.5-8 hours. 6. Watching weight. Thank you very much for referring this patient for consultation. Sincerely, Ramos Nam MD, PhD, FAASM. Diplomat of [place] [employer], Sleep Medicine Board by [place] [employer] [place] [employer] Scrap Piler of [facility] [place] Past Medical History Past Medical History: Hypertension History of Any Multi-Drug Resistant Organisms: None Reported Past Surgical History: No Surgical Hx Reported Past Psychological History: No Psychological Hx Reported Smoking Status: Current every day smoker Past Alcohol Use History: Abuse, Daily, Heavy Past Drug Use History: None Reported - Past Family History Father Additional Family Medical History / Comment(s): alcoholic Mother Family Medical History: Hypertension Medications and Allergies Home Medications Medication Instructions Recorded Confirmed Type Folic Acid 1 mg PO DAILY #30 tablet 08/13/19 Rx Multivitamins, Thera [Multivitamin] 1 tab PO DAILY #30 tablet 08/13/19 Rx Omeprazole [PriLOSEC] 20 mg PO AC-BID 30 Days #60 cap 08/13/19 Rx Thiamine [Vitamin B-1] 100 mg PO BID-W/MEALS 30 Days #60 08/13/19 Rx tab carvediloL [Coreg] 3.125 mg PO DAILY 30 Days #30 08/13/19 Rx tablet Ibuprofen [Motrin] 600 mg PO Q6H PRN #30 tab 08/09/23 Rx Lidocaine 5% Patch [Lidoderm 5% 1 patch TOPICAL DAILY PRN #7 patch 08/09/23 Rx Patch] Allergies Allergy/AdvReac Type Severity Reaction Status Date / Time No Known Allergies Allergy Verified 08/09/23 20:55 Physical Exam Vitals: Vital Signs Temp Pulse Resp BP Pulse Ox 02/19/24 11:07 98 F 94 16 145/89 97 Intake and Output 02/18/24 02/19/24 02/19/24 22:59 06:59 14:59 Other: Weight 73.482 kg Sleep Note - Sleep Data ESS Total: 3 - Sleep Note Sleep Note: Temperature: 98 F Pulse Rate: 94 Respiratory Rate: 16 Blood Pressure: 145/89 SpO2: 97 Height: 5 ft 6 in Weight: 73.482 kg BMI: Neck Circumference: 16.7
== END ==
LOC: 3 N SLEEP 10:42
PROVIDERS: ATTEND Internal Medicine
DX: G47.33 Obstructive sleep apnea (adult) (pediatric) (principal); I10 Essential (primary) hypertension; G47.10 Hypersomnia, unspecified; K21.9 Gastro-esophageal reflux disease without esophagitis; F17.210 Nicotine dependence, cigarettes, uncomplicated; Z98.890 Other specified postprocedural states; Z90.89 Acquired absence of other organs; Z86.59 Personal history of other mental and behavioral disorders; Z79.899 Other long term (current) drug therapy
CPT/HCPCS: 99211

== ENCOUNTER → 2024-02-20 | Outpatient (CLI) | payer BC ==
--- NOTE | 2024-02-26 16:09 | P.PCN ---
Description of Procedure: CLINICAL: A home sleep apnea test has been done for confirmation of possible obstructive sleep apnea-hypopnea syndrome. DESCRIPTION OF PROCEDURE: RESULTS: Recording time was 8 hours 18 minutes. Evaluation time was 7 hours 49 minutes. Evaluation time is sufficient for making conclusion about results of the test. Raw data of sleep recording has been reviewed and is adequate. Respiratory channel showed 11 apneas and 48 hypopneas. Apnea-hypopnea index was 7.5 per hour. Pulse rate in the range between minimum 57, maximum 113, average 79 by computer calculation. Lowest desaturation was 83%. IMPRESSION: 1. Obstructive Sleep Apnea Hypopnea Syndrome. 2. Hypertension. Please see other impressions from consultation. PLAN: 1. The patient will be started on auto-PAP treatment for correction of respiratory abnormallities during sleep. 2. I will see patient for follow up visit to discuss results of the test, evaluate clinical response on treatment with PAP therapy and make any necessary adjustments related to mask fitting, pressure, and humidification. 3. Watching weight. 4. Sleep hygiene with regular time in bed for at least 8 hours. 5. No driving if feeling any sleepiness. Thank you very much for allowing me to participate in the management of your patient. Sincerely, Ramos Nam MD, PhD, FAASM Diplomat of [place] [employer] Sleep Medicine Board of [place] [employer] Tele[employer] Assistant of [facility] [place] cc: Quintin Medrano DO
== END ==
LOC: 3 N SLEEP 16:47
PROVIDERS: ATTEND Internal Medicine
DX: G47.33 Obstructive sleep apnea (adult) (pediatric) (principal); I10 Essential (primary) hypertension; F17.200 Nicotine dependence, unspecified, uncomplicated; Z79.899 Other long term (current) drug therapy

== ENCOUNTER → 2024-03-03 | Outpatient (CLI) | payer BC | LOC: CPPFTMAIN 12:43 | PROVIDERS: ATTEND Family Medicine | DX: R05.3 Chronic cough (principal); F17.200 Nicotine dependence, unspecified, uncomplicated | CPT/HCPCS: 94060; 94726; 94729 ==

== ENCOUNTER → 2024-12-07 | Outpatient (CLI) | payer BC ==
[2024-12-07 14:52] LABS: Basophils # (A) 0.05 X 10*3/uL (0.00-0.10); Basophils % (A) 0.5 %; Eosinophils # (A) 0.13 X 10*3/uL (0.04-0.35); Eosinophils % (A) 1.2 %; HCT 48.4 % (39.6-50.0); HGB 15.4 g/dL (13.0-17.0); Lymphocytes # (A) 2.19 X 10*3/uL (0.90-5.00); MCH 29.1 pg (27.0-32.0); MCHC 31.8 g/dL (32.0-37.0); MCV 91.5 FL (80.0-97.0); Mean Platelet Volume 8.8 FL (9.5-12.2); Monocytes # (A) 0.96 X 10*3/uL (0.20-1.00); Monocytes % (A) 9.2 %; NRBC Per 100 WBC 0 X 10*3/uL (0.00-0.01); Neutrophils # (A) 7.08 X 10*3/uL (1.80-7.70); Neutrophils % (A) 67.7 %; Platelet Count 350 X 10*3/uL (140-440); RBC 5.29 X 10*6/uL (4.40-5.60); WBC 10.45 X 10*3/uL (4.50-10.00)
== END | disposition home or self-care (01) ==
LOC: LABWHC1 09:33
PROVIDERS: ATTEND Surgery
DX: Z01.818 Encounter for other preprocedural examination (principal); K42.9 Umbilical hernia without obstruction or gangrene; K40.00 Bilateral inguinal hernia, with obstruction, without gangrene, not specified as recurrent
CPT/HCPCS: 36415; 85025; 86850; 86900; 86901; 93005

== ENCOUNTER 2024-12-18 10:16 | Day surgery (SDC) | payer BC ==
[2024-12-18] MEDS: IV FLUID CONTINUATION 1,000 ML IV ONE (10:32)
[2024-12-18 11:01] LABS: Glucose,Whole Blood 96 mg/dL (70-110)
[2024-12-18] MEDS: ACETAMINOPHEN TAB 500 MG TAB PO PRN (11:23)
[2024-12-18] MEDS: LACTATED RINGERS 1,000 ML IV SCH (11:23)
[2024-12-18] MEDS: ONDANSETRON 4 MG/2 ML VIAL IVP STA (11:24)
[2024-12-18] MEDS: DEXAMETHASONE SOD PHOSPHATE 4 MG/ML 1 ML VIAL IVP STA (11:25)
[2024-12-18] MEDS: HEPARIN SODIUM,PORCINE 5,000 UNIT/ML 1 ML VIAL SQ PRN (11:39)
[2024-12-18] MEDS: TAMSULOSIN 0.4 MG CAP.ER.24H PO STA (12:40)
--- NOTE | 2024-12-18 12:51 | P.GSHP ---
History of Present Illness H&P Date: 12/18/24 Chief Complaint: Bilateral inguinal hernia 54-year-old male here today for elective repair of bilateral inguinal hernia and umbilical hernia. Patient states these hernias have persistently been causing discomfort and have been enlarging some. Patient with history of prior smoking. No history of previous hernia surgery. Past Medical History Past Medical History: COPD, GERD/Reflux, Hypertension Additional Past Medical History / Comment(s): recent "head cold" that turned into sinus infection, mostly resolved, occasional cough, not productive, is currently on A/B & had steroids recently, had covid test that was neg. @dr's office recently History of Any Multi-Drug Resistant Organisms: None Reported Past Surgical History: No Surgical Hx Reported Additional Past Surgical History / Comment(s): never had surgery Additional Past Anesthesia/Blood Transfusion Reaction / Comment(s): no family problems w/anesthesia, pt. has never had surgery Smoking Status: Current every day smoker - Past Family History Father Additional Family Medical History / Comment(s): alcoholic Mother Family Medical History: Hypertension Medications and Allergies Home Medications Medication Instructions Recorded Confirmed Type Famotidine [Pepcid] 20 mg PO BID 12/16/24 12/18/24 History Fluticasone/Umeclidin/Vilanter 1 inhalation INHALATION DAILY 12/16/24 12/18/24 History [Trelegy Ellipta 100-62.5-25] Ibuprofen [Motrin] 800 mg PO Q8H PRN 12/16/24 12/18/24 History Levofloxacin [Levaquin] 750 mg PO DAILY 12/16/24 12/18/24 History amLODIPine [Norvasc] 2.5 mg PO DAILY 12/16/24 12/18/24 History lisinopriL [Zestril] 20 mg PO DAILY 12/16/24 12/18/24 History Allergies Allergy/AdvReac Type Severity Reaction Status Date / Time No Known Allergies Allergy Verified 12/18/24 10:47 Surgical - Exam Vital Signs Temp Pulse Resp BP Pulse Ox 97.4 F L 99 18 128/92 98 12/18/24 10:46 12/18/24 10:46 12/18/24 10:46 12/18/24 10:46 12/18/24 10:46 Physical exam: General: Well-developed, well-nourished HEENT: Normocephalic, sclerae nonicteric Abdomen: Nontender, nondistended, bilateral reducible inguinal hernia, small reducible umbilical hernia Extremities: No edema Neuro: Alert and oriented Assessment and Plan (1) Inguinal hernia Narrative/Plan: 54-year-old male with bilateral inguinal hernia and reducible umbilical hernia. Will proceed with laparoscopic da Eamon assisted repair bilateral inguinal hernia with mesh, possible open with open umbilical hernia repair with possible mesh. Risks of bleeding, infection, recurrence, chronic pain, bladder and bowel injury, numbness, conversion to an open procedure, scarring, and anesthesia related complications were discussed. The correlation between hernia recurrence, obesity and smoking were reviewed in detail. The patient understands and wishes to proceed. Current Visit: Yes Status: Acute Code(s): K40.90 - UNIL INGUINAL HERNIA, W/O OBST OR GANGR, NOT SPCF RECUR SNOMED Code(s): 034643854
[2024-12-18] MEDS ORDERED: MIDAZOLAM 2 MG/2 ML VIAL ONE (13:25)
[2024-12-18] MEDS ORDERED: PROPOFOL 10 MG/ML 20 ML VIAL IV ONE (13:25)
[2024-12-18] MEDS ORDERED: ROCURONIUM 10 MG/ML (5 ML VIAL) IV ONE (13:25)
[2024-12-18] MEDS ORDERED: fentaNYL (PF) 50 MCG/ML 2 ML AMP ONE (13:25)
[2024-12-18] MEDS ORDERED: SUGAMMADEX SODIUM 100 MG/ML SYR IV ONE (13:25)
[2024-12-18] MEDS ORDERED: PHENYLEPHRINE-0.9% NACL SYG 1,000 MCG/10 ML SYRINGE ONE (13:25)
[2024-12-18] MEDS ORDERED: KETOROLAC 15 MG/ML 1 ML VIAL ONE (13:25)
[2024-12-18] MEDS ORDERED: HYDROmorphone (PF) 1 MG/ML ONE (13:25)
[2024-12-18] MEDS: BUPIVACAINE (PF) 0.25% 30 ML VIAL SQ ONE ×2 (13:59)
[2024-12-18] MEDS: LACTATED RINGERS 1,000 ML IV ONE ×2 (15:46→15:57)
[2024-12-18 16:08] VITALS: TEMP 97.2
--- NOTE | 2024-12-18 16:12 | P.OP ---
Date of Procedure: 12/18/24 Procedure(s) Performed: PREOPERATIVE DIAGNOSIS: Bilateral inguinal hernia, umbilical hernia POSTOPERATIVE DIAGNOSIS: Same PROCEDURE: Laparoscopic da Eamon assisted repair bilateral inguinal hernia with mesh, open umbilical hernia hernia SURGEON: Dr. Zeng ANESTHESIA: General EBL: 20 cc OPERATIVE PROCEDURE DETAILS: Patient was placed in the operating table in the supine position. The patient was placed under general anesthesia. The abdomen was prepped and draped in usual sterile fashion. A small curvilinear supraumbilical incision was made. The fascia was dissected. The patient's hernia was freed of the overlying umbilicus. The dermis of the umbilicus was mobilized. The hernia contents were reduced back into the preperitoneal space. The fascial defect was 8 mm in size. 2 separate 0 Ethibond sutures were used laterally to decrease the size of this opening so that the trocar would not be l oose. The fascia was then retracted anteriorly with [place] forceps. The Veress needle was inserted. The saline drop test was normal. Insufflation took place to 15 mmHg. An 8 mm trocar was placed into the peritoneal cavity. 2 additional 8 mm trochars were placed in the right upper quadrant and left upper quadrant under visualization. The robotic arms were then brought in and docked into place. The fenestrated bipolar was used in the left arm and the laparoscopic moris was utilized in the right arm. A 30 8 mm scope was used in the up position. The peritoneal cavity was inspected. The patient had a moderate sized right direct inguinal hernia and a moderate sized left indirect inguinal hernia. A incision was created on the peritoneum across the lower abdomen superior to the bladder. The preperitoneal dissection took place bilaterally at that time. The direct hernia on the right-hand side was reduced using blunt dissection. Shane's ligament and the pubic symphysis were well-visualized. Dissection on the left-hand side of the indirect hernia sac then took place without difficulty as well. A small direct midline hernia was identified. An additional small direct left inguinal hernia was also identified and reduced. Once we had full dissection in both sacs fully reduced 2 separate 15 x 10 mm Progrip mesh were placed within the abdomen crossing one another in the midline. These were then sutured to the Shane's ligament across the pubic symphysis to the opposite side using a running 30 absorbable V lock suture. The same stitch was then brought to the midline and the mesh was sutured to the abdominal wall in the midline superiorly. This covered all hernia spaces nicely. The peritoneal defect was then closed bilaterally using a absorbable 2-0 VLok suture. The hernia sacs were incorporated into the peritoneal closure to help prevent future recurrence. The pneumoperitoneum was then evacuated. The skin of all 3 sites was closed using a 4-0 Monocryl stitch. Skin glue was then applied. TYPE OF MESH USED: Progrip 15 x 10 LOCATION OF MESH: Preperitoneal/sub-lay FIXATION: Absorbable 30V lock PREOPERATIVE DISCUSSION ON SMOKING CESSASTION: Yes PREOPERATIVE DISCUSSION ON MORBID OBESITY: Yes PREOPERATIVE DISCUSSION ON APPROPRIATE USE OF NARCOTIC USE: Yes PREOPERATIVE EDUCATION: Multi Modal, Smoking Cessation and Weight Loss with BMI over 35. DISPOSITION: Stable to recovery room
[2024-12-18] MEDS: HYDROmorphone 0.5 MG/0.5 ML SYRINGE IVP STA (16:35)
[2024-12-18 17:21] VITALS: BP 110/62; PULSE 104; RESP 14
[2024-12-18] MEDS ORDERED: ACETAMINOPHEN TAB 325 MG TAB PO SCH (18:00)
[2024-12-18] MEDS ORDERED: IBUPROFEN 600 MG TAB PO SCH (20:00)
== END 2024-12-18 17:30 | disposition home or self-care (01) ==
LOC: OR 10:16
PROVIDERS: ATTEND Surgery
DX: K40.20 Bilateral inguinal hernia, without obstruction or gangrene, not specified as recurrent (principal); K42.9 Umbilical hernia without obstruction or gangrene; I10 Essential (primary) hypertension; J44.9 Chronic obstructive pulmonary disease, unspecified; K21.9 Gastro-esophageal reflux disease without esophagitis; F17.210 Nicotine dependence, cigarettes, uncomplicated; Z79.51 Long term (current) use of inhaled steroids; Z79.899 Other long term (current) drug therapy
CPT/HCPCS: 49591; 49650; S2900

== ENCOUNTER 2025-03-21 09:11 | Emergency (ER) | payer BC ==
[2025-03-21 09:16] VITALS: TEMP 97.7
--- NOTE | 2025-03-21 09:35 | ED ---
General Adult HPI - General Chief complaint: Upper Respiratory Infection Stated complaint: congestion Time Seen by Provider: 03/21/25 09:33 Source: patient, RN notes reviewed Mode of arrival: ambulatory Limitations: no limitations - History of Present Illness Initial comments: 55-year-old male presenting to the ER for evaluation of cough and congestion. Patient states on he started to experience sinus pressure and a runny nose. He states since he has been having a dry hacking cough and frequent sneezing. Patient reports he is starting a new job soon and would like to be evaluated for illnesses. Patient is a smoker but is currently trying to quit as he is using nicotine patches. Patient does take Trelegy and occasionally uses an albuterol inhaler. He endorses mild increase in shortness of breath since becoming ill and has noticed himself using albuterol inhaler more frequently. He also reports a mild sore throat. He denies any fevers, chills, dizziness, lightheadedness, chest pain, shortness of breath, nausea, vomiting, abdominal pain, diarrhea or peripheral edema. - Related Data Home Medications Medication Instructions Recorded Confirmed Famotidine [Pepcid] 20 mg PO BID 12/16/24 12/18/24 Fluticasone/Umeclidin/Vilanter 1 inhalation INHALATION DAILY 12/16/24 12/18/24 [Trelegy Ellipta 100-62.5-25] Ibuprofen [Motrin] 800 mg PO Q8H PRN 12/16/24 12/18/24 Levofloxacin [Levaquin] 750 mg PO DAILY 12/16/24 12/18/24 amLODIPine [Norvasc] 2.5 mg PO DAILY 12/16/24 12/18/24 lisinopriL [Zestril] 20 mg PO DAILY 12/16/24 12/18/24 Previous Rx's Medication Instructions Recorded oxyCODONE HCL [OxyIR] 5 mg PO Q6H PRN 3 Days #6 tab 12/18/24 Benzonatate [Tessalon Perles] 100 mg PO TID PRN #15 capsule 03/21/25 Allergies Allergy/AdvReac Type Severity Reaction Status Date / Time No Known Allergies Allergy Verified 03/21/25 09:16 Review of Systems ROS Statement: Those systems with pertinent positive or pertinent negative responses have been documented in the HPI. ROS Other: All systems not noted in ROS Statement are negative. Past Medical History Past Medical History: Hypertension History of Any Multi-Drug Resistant Organisms: None Reported Past Surgical History: No Surgical Hx Reported Past Psychological History: No Psychological Hx Reported Smoking Status: Current every day smoker Past Alcohol Use History: None Reported Past Drug Use History: None Reported - Past Family History Father Additional Family Medical History / Comment(s): alcoholic Mother Family Medical History: Hypertension General Exam Limitations: no limitations General appearance: alert, in no apparent distress ENT exam: Present: mucous membranes moist (Erythema to oropharynx. No tonsillar edema, exudates or uvular deviation.), TM's normal bilaterally Neck exam: Present: normal inspection. Absent: tenderness, meningismus, lymphadenopathy Respiratory exam: Present: normal lung sounds bilaterally. Absent: respiratory distress, wheezes, rales, rhonchi, stridor Cardiovascular Exam: Present: regular rate, normal rhythm, normal heart sounds. Absent: systolic murmur, diastolic murmur, rubs, gallop, clicks Extremities exam: Present: normal inspection, full ROM, normal capillary refill. Absent: tenderness, pedal edema, joint swelling, calf tenderness Neurological exam: Present: alert, oriented X3, CN II-XII intact Skin exam: Present: warm, dry, intact, normal color. Absent: rash Course Vital Signs 03/21/25 03/21/25 09:14 10:42 Temperature 97.7 F Pulse Rate 98 92 Respiratory 20 22 Rate Blood Pressure 157/101 128/90 O2 Sat by Pulse 99 98 Oximetry Medical Decision Making - Medical Decision Making Was pt. sent in by a medical professional or institution ([facility], [facility], urgent care, hospital, or [facility]...) When possible be specific @ -No Did you speak to anyone other than the patient for history (EMS, parent, family, police, friend...)? What history was obtained from this source @ -No Did you review nursing and triage notes (agree or disagree)? Why? @ -I reviewed and agree with nursing and triage notes Were old charts reviewed (outside hosp., previous admission, EMS record, old EK G, old radiological studies, urgent care reports/EKG's, [facility] records)? Report findings @ -No old charts were reviewed Differential Diagnosis (chest pain, altered mental status, abdominal pain women, abdominal pain men, vaginal bleeding, weakness, fever, dyspnea, syncope, headache, dizziness, GI bleed, back pain, seizure, CVA, palpatations, mental health, musculoskeletal)? @ -COVID, RSV, influenza, viral sinusitis, pneumonia, strep pharyngitis, this list is not meant to be all-inclusive EKG interpreted by me (3pts min.). @ -None done X-rays interpreted by me (1pt min.). @ -CXR interpreted by me negative for focal consolidations, pneumothorax or pleural effusions. CT interpreted by me (1pt min.). @ -None done U/S interpreted by me (1pt. min.). @ -None done What testing was considered but not performed or refused? (CT, X-rays, U/S, labs)? Why? @ -None What meds were considered but not given or refused? Why? @ -None Did you discuss the management of the patient with other professionals (professionals i.e. , PA, [facility], lab, RT, psych nurse, community mental health social worker, vocational case manager, teacher, credit risk review officer, piano case maker)? Give summary @ -No Was smoking cessation discussed for >3mins.? @ -I discussed smoking cessation for greater than 3 minutes. The risk of smoking were discussed with the patient including but not limited to risks of cancer, stroke, coronary artery disease and COPD. Also discussed with patient were multiple methods of quitting smoking. Lastly we discussed the financial cost of smoking. Was critical care preformed (if so, how long)? @ -No Were there social determinants of health that impacted care today? How? (Homelessness, low income, unemployed, alcoholism, drug addiction, transportation, low edu. Level, literacy, decrease access to med. care, snf, rehab)? @ -No Was there de-escalation of care discussed even if they declined (Discuss DNR or withdrawal of care, Hospice)? DNR status @ -No What co-morbidities impacted this encounter? (DM, HTN, Smoking, COPD, CAD, Cancer, CVA, ARF, Chemo, Hep., AIDS, mental health diagnosis, sleep apnea, morbid obesity)? @ -Smoker Was patient admitted / discharged? Hospital course, mention meds given and route, prescriptions, significant lab abnormalities, going to OR and other pertinent info. @ -Discharge. 55-year-old male presented the ER for evaluation of sinus pressure and cough timesx 4 days. Patient initially hypertensive 157/101 this did improve throughout ER stay. Vitals otherwise been acceptable limits. Upon my examination, patient sitting on side of stretcher no signs of acute distress. Patient does have a dry cough noted on exam. Erythema noted to oropharynx. No tonsillar edema, exudates or uvular deviation. Viral swabs obtained negative. Chest x-ray negative. Patient provided ibuprofen and Tessalon Perles for symptom control. Upon reevaluation, patient resting comfortably in exam with no signs of acute distress. Patient educated on laboratory and x-ray results. Patient we discharged with a prescription of Tessalon Perles and instructed to continue [id number] ibuprofen and Tylenol for symptom control. I discussed smoking cessation for greater than 3 minutes. The risk of smoking were discussed with the patient including but not limited to risks of cancer, stroke, coronary artery disease and COPD. Also discussed with patient were multiple methods of quitting smoking. Lastly we discussed the financial cost of smoking. Return parameters discussed. Patient discharged stable condition with follow-up to PCP. Patient verbally expressed understanding agreement with care plan. Case discussed with ED attending, Dr. Vogel. Undiagnosed new problem with uncertain prognosis? @ -No Drug Therapy requiring intensive monitoring for toxicity (Heparin, Nitro, Insulin, Cardizem)? @ -No Were any procedures done? @ -No Diagnosis/symptom? @ -Viral illness/acute viral sinusitis Acute, or Chronic, or Acute on Chronic? @ -Acute Uncomplicated (without systemic symptoms) or Complicated (systemic symptoms)? @ -Uncomplicated Side effects of treatment? @ -No Exacerbation, Progression, or Severe Exacerbation? @ -No Poses a threat to life or bodily function? How? (Chest pain, [place], [place], pneumonia, PE, COPD, DKA, ARF, appy, cholecystitis, CVA, Diverticulitis, Homicidal, Suicidal, threat to staff... and all critical care pts) @ -No - Lab Data Lab Results 03/21/25 Range/Units 09:50 Influenza Type A (PCR) Not Detected (Not Detectd) Influenza Type B (PCR) Not Detected (Not Detectd) RSV (PCR) Not Detected (Not Detectd) SARS-CoV-2 (PCR) Not Detected (Not Detectd) - Radiology Data Radiology results: report reviewed, image reviewed Disposition Clinical Impression: Viral infection, Acute viral sinusitis Disposition: HOME SELF-CARE Condition: Stable Additional Instructions: Alternate [id number] ibuprofen and Tylenol for symptom control. You may take Tessalon Perles as prescribed for cough. I highly recommend you stop smoking. Return to the ER for any new or worsening concerns Prescriptions: Benzonatate [Tessalon Perles] 100 mg PO TID PRN #15 capsule PRN Reason: Cough Is patient prescribed a controlled substance at d/c from ED?: No Referrals: Quintin Medrano DO [Primary Care Provider] - 1-2 days Time of Disposition: 11:02
[2025-03-21] MEDS: IBUPROFEN 600 MG TAB PO STA (09:47)
[2025-03-21] MEDS: BENZONATATE 100 MG CAP PO STA (09:47)
--- NOTE | 2025-03-21 10:13 | XR ---
EXAMINATION TYPE: XR chest 2V DATE OF EXAM: 03/21/2025 CLINICAL INDICATION: Male, 55 years old with history of cough, TECHNIQUE: Frontal and lateral views of the chest are obtained. COMPARISON: Chest x-ray May 29, 2022 FINDINGS: There is no focal air space opacity, pleural effusion, or pneumothorax seen. The cardiac silhouette size is stable and within normal limits. The osseous structures are intact. IMPRESSION: No acute pulmonary infiltrate. [facility], , 03/21/2025 10:11 AM
[2025-03-21 10:32] LABS: Influenza A Not Detected (Not Detectd); Influenza B Not Detected (Not Detectd); RSV Not Detected (Not Detectd)
[2025-03-21 10:43] VITALS: BP 128/90; PULSE 92; RESP 22
== END 2025-03-21 11:16 | disposition home or self-care (01) ==
LOC: EC 09:11
DX: J01.90 Acute sinusitis, unspecified (principal); B97.89 Other viral agents as the cause of diseases classified elsewhere; F17.200 Nicotine dependence, unspecified, uncomplicated
CPT/HCPCS: 71046; 87636; 99284; 99406